=== PATIENT | female | born 1950 | race Caucasian/White ===

== ENCOUNTER → 2022-04-22 | Outpatient (CLI) | payer MEDICARE, OTHER ==
[~2022-04-22] MED LIST: ACCUPRIL10 MG PO; ASPIR 8181 MG PO; BENADRYL 50MG C50 MG PO; COREG 25MG TAB25 MG PO; FUROSEMIDE20 MG PO; HYDROCODON-ACE1 EAC4 PO; INCRUSE ELLI62.5 MCG INH; LEVAQUIN500 MG PO; LIPITOR TAB 1010 MG PO; NITROSTAT 0.40.4 MG SL; NORVASC 5 MG TAB5 MG PO; PEPCID20 MG PO; PREDNISONE 50 M50 MG PO; TOPAMAX50 MG PO; VENTOLIN HFA 66.7 GM INH
== END ==
LOC: KOH-I 09:41
DX: F17.210 Nicotine dependence, cigarettes, uncomplicated (principal)
CPT/HCPCS: 71271